=== PATIENT | male | born 1955 | race Caucasian/White ===

== ENCOUNTER → 2022-12-20 12:30 | Outpatient (CLI) | payer MEDICARE, OTHER, SELFPAY ==
--- NOTE | ~2022-12-20 | XR_ITS ---
Clinical Indication: Dyspnea PA and lateral views of the chest: Comparison: 05/30/2016 Findings: There is minimal patchy hazy airspace disease. No pleural effusion or pneumothorax. Linear bilateral scarring noted.. Cardiomediastinal silhouette is within normal limits. Bones and soft tiss ues are unremarkable. Impression: Minimal patchy bilateral haziness. Consider mild pulmonary edema or atypical infection. Areas of linear scarring at the midlung zones bilaterally. Reviewed, dictated and finalized at [facility]. Impression: Minimal patchy bilateral haziness. Consider mild pulmonary edema or atypical in fection. Areas of linear scarring at the midlung zones bilaterally.
== END ==
PROVIDERS: PCP Family Medicine; Visit Provider Family Medicine
DX: I51.7 Cardiomegaly (principal); I10 Essential (primary) hypertension; R01.1 Cardiac murmur, unspecified; R06.09 Other forms of dyspnea
CPT/HCPCS: 71046

== ENCOUNTER 2022-12-21 09:59 | Inpatient (IN) | payer MEDICARE, OTHER, SELFPAY ==
[2022-12-21] VITALS (33 sets, daily range): BP systolic 124–154; BP diastolic 69–97; PULSE 60–79; RESP 7–18; TEMP 36.2–36.9; O2SAT 92–100; BMI 25.9
--- NOTE | ~2022-12-21 | XR_ITS ---
XR chest 2V 12/21/2022 11:28 Indication: Shortness of breath and feet swelling Procedure: AP and lateral views of the chest Comparison: 12/20/2022 and 05/30/2016 Findings: Cardiomegaly. Mild interstitial edema. Linear infiltrates of the mid lungs bilaterally, mos t likely atelectasis/scarring. No significant effusion. No pneumothorax. No acute osseous abnormality . There is a hiatal hernia. Impression: 1: Cardiomegaly with mild interstitial edema. Reviewed, dictated and finalized at location [] Impression: 1: Cardiomegaly with mild interstitial edema.
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
[2022-12-21 10:25] LABS: Basophils Percent Auto 0.6 % (0.2-1.2); Eosinophils Absolute Auto 0.3 K/mm3 (0-0.3); Hematocrit 22.5 % (42.0-52.0); Immature Granulocyte Absolute 0.03 K/mm3 (0.00-0.031); Immature Granulocyte Percent A 0.5 % (0-0.5); Immature Platelet Fraction Pct 4.2 % (0.9-11.2); Immature Reticulocyte Fraction 14.9 % (3.0-15.9); Lymphocytes Absolute Auto 1.57 K/mm3 (0.9-3.2); Lymphocytes Percent Auto 25.3 % (18.3-44.2); Mean Corpuscular HGB Conc 26.2 g/dl (32-36); Mean Corpuscular Hemoglobin 19.6 pg (26-34); Mean Corpuscular Volume 74.8 fl (80-100); Mean Platelet Volume 10.9 fl (7.4-10.4); Monocytes Absolute Auto 0.6 K/mm3 (0.1-0.6); Monocytes Percent Auto 9.3 % (2.6-8.5); Neutrophils Absolute Auto 3.7 K/mm3 (1.3-6.7); Neutrophils Percent Auto 59.3 % (45.5-73.1); Platelet Count Result 190 k/mm3 (150-375); Red Blood Count 3.01 M/mm3 (4.6-6.20); Red Cell Distribution Width 17.3 % (11.5-14.5); Reticulocyte Hemoglobin Conten 16.5 pg (28.2-35.7); Reticulocyte Percent 1.57 % (0.7-4.3); Reticulocytes Absolute 0.05 M/mm3 (0.02-0.1); White Blood Count 6.2 K/mm3 (4.5-10.0)
[2022-12-21 10:28] LABS: Hemoglobin 5.9 g/dL (14.0-18.0)
[2022-12-21 10:33] LABS: Alanine Aminotransferase 14 U/L (6-50); Albumin Level 4.4 g/dL (3.5-5.1); Alkaline Phosphatase 97 U/L (38-126); Anion Gap 9 mmol/L (8-16); Aspartate Amino Transferase 19 U/L (17-59); Bilirubin,Total 0.5 mg/dL (0.2-1.3); Blood Urea Nitrogen 18 mg/dL (9-20); Calcium 8.7 mg/dL (8.4-10.2); Carbon Dioxide 27 mmol/L (22-30); Chloride 103 mmol/L (98-107); Estimated CRCL calculation 68 ml/min; Estimated Glomerular Filt Rate > 60; Glucose 100 mg/dL (65-110); Lactate Dehydrogenase 160 U/L (120-246); Potassium 4.1 mmol/L (3.4-5.0); Sodium 139 mmol/L (137-145)
[2022-12-21 10:34] LABS: Iron 22 ug/dL (49-181)
[2022-12-21 10:45] LABS: Percent Iron Saturation 4 % (20-50)
[2022-12-21 10:50] LABS: Platelet Estimate Adequate (Adequate)
[2022-12-21 10:51] LABS: Anisocytosis 1+ (NORMAL); Hypochromasia 1+ (NORMAL); Microcytosis 1+ (NORMAL); Ovalocytes 2+ (NORMAL); Poikilocytosis 1+ (NORMAL); Schistocytes None Seen (NORMAL)
--- NOTE | 2022-12-21 10:58 | ECG_ITS ---
Measurements Intervals [place] Rate: 62 P: 3 [place]: 164 QRS: 26 QRSD: 90 T: 31 QT: 435 QTc: 442 Interpretive Statements SINUS RHYTHM NO PREVIOUS ECG AVAILABLE FOR COMPARISON Electronically Signed On 12-21-2022 19:54:36 CDT by Karie Aquino M.D.
[2022-12-21 12:02] LABS: Folic Acid 9.6 ng/mL (2.76->20)
[2022-12-21] MEDS: TUBING, BLOOD PLUM PUMP TUBING 1 EACH XX (13:02)
[2022-12-21] MEDS: SODIUM CHLORIDE 0.9% IV 250 ML 30 ML IV CONT (13:02)
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
--- NOTE | 2022-12-21 14:41 | ECHO_ITS ---
Patient Info Name: Bob Ramos Age: 67 years : 1955 Gender: Male Ht: 69 in Wt: 173 lbs BSA: 1.96 m2 HR: 69 bpm Heart Rhythm: Sinus Rhythm Technical Quality: Good Exam Date: 12/21/2022 4:05 PM Exam Location: [facility] Patient Status: Outpatient Admit Date: 12/21/2022 Staff Ordering Physician: Natividad Guevara PA-C Bus Operator: Ade Parks RDCS Attending Provider: Bong Garcia MD Referring Physician: Paola TORRES; Exam Type: CA echo doppler color flow Study Info Indications - murmur/edema Complete two-dimensional, color flow and Doppler transthoracic echocardiogram is performed. Summary 1. Complete two-dimensional, color flow and Doppler transthoracic echocardiogram is performed. 2. Moderate left ventricular enlargement with mild concentric hypertrophy. Left ventricular function of the lower limit of normal, EF 50-55%, with mild hypokinesis of the basal inferior septal segment. Diastolic dysfunction is present. 3. Left atrial chamber dimension is moderately enlarged. 4. Mildly calcified aortic valve. There is mild to moderate aortic valve stenosis with a peak velocity of 254 cm/s, mean gradient of 14 mmHg, and aortic valve area of 1.2 cm2. 5. There is mild aortic valve regurgitation. 6. There is mild mitral valve regurgitation. 7. There is mild tricuspid valve regurgitation. 8. Mild pulmonary hypertension, estimated pulmonary arterial systolic pressure is 39 mmHg. 9. Normal sinus rhythm. Left Ventricle Left ventricular chamber dimension is moderately enlarged. Left ventricular systolic function is normal, estimated at 50-55%. There is mildly increased left ventricular wall thickness. Left ventricular septal wall motion is normal. The left ventricular diastolic function is abnormal. Right Ventricle Right ventricular chamber dimension is normal. Right ventricular systolic function is normal. Left Atria Left atrial chamber dimension is moderately enlarged. Right Atria Right atrial chamber dimension is normal. Aortic Valve The aortic valve is trileaflet. There is no aortic valve sclerosis. Mildly calcified aortic valve. There is mild to moderate aortic valve stenosis with a peak velocity of 254 cm/s, mean gradient of 14 mmHg, and aortic valve area of 1.2 cm2. There is mild aortic valve regurgitation. There is mild aortic valve calcification. Pulmonic Valve The pulmonic valve is normal. There is no pulmonic valve stenosis. There is no pulmonic regurgitation. Mitral Valve The mitral valve has normal leaflets. There is no mitral valve stenosis. There is mild mitral valve regurgitation. Tricuspid Valve The tricuspid valve leaflets are normal. There is no significant tricuspid valve stenosis. There is mild tricuspid valve regurgitation. Mild pulmonary hypertension, estimated pulmonary arterial systolic pressure is 39 mmHg. Pericardium/Pleural The pericardium appears normal. There is no pericardial effusion. Inferior Vena Cava Normal inferior vena cava with >50% collapse upon inspiration consistent with Empty right atrial pressure, 10 mmHg. Aorta The aortic root size at the sinus of Valsalva is normal. The prox ascending aorta size is normal. Left Ventricular Outflow Tract Name Value Normal LVOT 2D LVOT Diameter 2.1 cm LVO
[2022-12-21] MEDS: FUROSEMIDE INJ 40 MG/4 ML VIAL 20 MG IV PUSH (15:00)
--- NOTE | 2022-12-21 15:44 | ADMGEN ---
This patient, Bob Ramos, was admitted to Medical Room 261-01. Patient/family oriented to hospital policies and general routines including ID bracelet, bed and alarms, visiting hours, pain management, procedures, bathroom and other care routines, personal items, smoking policy, room service/diet, and visiting hours. Information on how to activate the Rapid Response Team has been discussed. Patient/Family are encouraged to report perceived risks to care and to ask questions if they do not understand what they are told or what they should do.
[2022-12-21 17:20] LABS: IFOB Positive Control Positive; Immunochemical Fecal Occult Bl Negative (N)
[2022-12-21 17:28] LABS: Hematocrit 27.1 % (42.0-52.0); Hemoglobin 7.7 g/dL (14.0-18.0)
[2022-12-21] MEDS: TIZANIDINE HCL 4 MG TABLET BY MOUTH (22:22)
[2022-12-21] MEDS: traZODone HCL 25 MG TABLET PO (22:22)
[2022-12-21] MEDS: GABAPENTIN 300 MG CAPSULE 600 MG PO (22:23)
[2022-12-22 05:19] LABS: Hematocrit 26.6 % (42.0-52.0); Hemoglobin 7.6 g/dL (14.0-18.0); Mean Corpuscular HGB Conc 28.6 g/dl (32-36); Mean Corpuscular Hemoglobin 21.4 pg (26-34); Mean Corpuscular Volume 74.9 fl (80-100); Mean Platelet Volume 10.4 fl (7.4-10.4); Platelet Count Result 160 k/mm3 (150-375); Red Blood Count 3.55 M/mm3 (4.6-6.20); Red Cell Distribution Width 17.5 % (11.5-14.5); White Blood Count 5.1 K/mm3 (4.5-10.0)
[2022-12-22 05:34] LABS: Anion Gap 5 mmol/L (8-16); Blood Urea Nitrogen 13 mg/dL (9-20); Calcium 8.7 mg/dL (8.4-10.2); Carbon Dioxide 31 mmol/L (22-30); Chloride 104 mmol/L (98-107); Estimated CRCL calculation 76 ml/min; Estimated Glomerular Filt Rate > 60; Glucose 84 mg/dL (65-110); Magnesium 2.3 mg/dL (1.6-2.3); Potassium 3.9 mmol/L (3.4-5.0); Sodium 140 mmol/L (137-145)
[2022-12-22 06:00] VITALS: BP 147/74; PULSE 66; RESP 14; TEMP 36.8; O2SAT 94
[2022-12-22 06:34] LABS: Thyroid Stimulating Hormone Reflex 0.662 uIU/mL (0.465-4.68)
[2022-12-22] MEDS: IRON SUCROSE COMPLEX 100 MG in SODIUM CHLORIDE 0.9% IV 50 ML 220 MG IVPB (08:37)
[2022-12-22] MEDS: GABAPENTIN 300 MG CAPSULE 600 MG PO ×3 (08:37→17:59)
[2022-12-22] MEDS: FLUTICASONE PROPIONATE 0.05% NA SPR 16 GM BTL (*BKC) 1 SPRAY NASAL (08:37)
[2022-12-22 08:38] VITALS: PULSE 68
[2022-12-22] MEDS: METOPROLOL TARTRATE 25 MG TABLET PO (08:38)
[2022-12-22] MEDS: SERTRALINE HCL 50 MG TABLET 200 MG PO (08:38)
[2022-12-22] MEDS: amLODIPine BESYLATE 2.5 MG TABLET PO (08:38)
[2022-12-22] MEDS: FUROSEMIDE INJ 40 MG/4 ML VIAL IV PUSH (08:38)
[2022-12-22] MEDS: ATORVASTATIN 40 MG TABLET PO (08:38)
[2022-12-22] MEDS: TIZANIDINE HCL 2 MG TABLET BY MOUTH ×4 (08:38→21:12)
[2022-12-22] MEDS: oxyCODONE/ACETAMINOPHEN (*CRX) 5-325 MG TABLET 1 TABLET PO ×2 (08:46→15:33)
[2022-12-22] MEDS: oxyCODONE HCL (*CRX) 2.5 MG TAB IR PO ×2 (08:46→15:34)
[2022-12-22 10:43] LABS: Hematocrit 28.3 % (42.0-52.0)
[2022-12-22 14:00] VITALS: BP 108/60; PULSE 66; RESP 16; TEMP 37; O2SAT 94
--- NOTE | 2022-12-22 15:33 | PM.IMPN ---
Progress Note: A&P Assessment and Plan (1) Symptomatic anemia: Code(s): D64.9 - Anemia, unspecified Status: Acute Assessment and Plan: Hemoglobin 5.7 on presentation, transfused 2 units packed RBCs. No obvious etiology for bleeding. Hemoccult negative. Suspect intermittent occult blood loss. Patient noted to be iron deficient (iron 22, TIBC 556, % saturation 4%, ferritin 18.60). MCV low. Received IV iron infusion. Will begin Protonix and proceed with GI consultation for further evaluation of profound anemia. (2) Congestive heart failure: Code(s): I50.9 - Heart failure, unspecified Status: Acute Assessment and Plan: Possibly mild acute exacerbation. Outpatient BNP was 300. Echo completed with EF 50-55%, diastolic dysfunction present, mild hypokinesis of basal inferior septal segment (appears patient has history of CAD). Patient has been diuresed with IV Lasix and appears euvolemic on exam. Will transition back to oral Lasix. Monitor intake and output and daily weights. Recommend outpatient Cardiology follow-up for abnormalities noted on echocardiogram. (3) Cardiac murmur: Code(s): R01.1 - Cardiac murmur, unspecified Status: Acute Assessment and Plan: Murmur noted on exam. Echo completed with only mild valvular disease. Recommend outpatient cardiac follow-up (4) Essential (primary) hypertension: Code(s): I10 - Essential (primary) hypertension Status: Acute Assessment and Plan: Blood pressure is remaining stable. Subjective Date/time seen: 12/22/22 15:33 Interval history: Date of service: 12/22/2022 Bob Ramos is a 67-year-old male with a history of hypertension, ERIN, TBI with subsequent ataxia who is seen in follow-up for anemia. Patient reports he is feeling improved today. His main concern was swelling in his bilateral feet which he states has nearly resolved. He does endorse weakness. Complains of mild shortness of breath as well as dyspnea on exertion, however states that this seems to be improving as well. He denies chest pain. No abdominal pain. No episodes of bleeding including melena, hematochezia, hematemesis, hematuria, epistaxis. Review of Systems Review of Systems: Twelve systems were reviewed and are negative except for as per HPI. All systems reviewed & are unremarkable except as noted in HPI and below Exam Narrative: General: well-nourished, well-appearing 67-year-old male, sitting up in bed, comfortable, NARD Neuro: awake, alert and oriented x4, no focal neuro deficits noted HEENMT: normocephalic, atraumatic, EOMI, sclerae anicteric Respiratory: clear to auscultation bilaterally, nonlabored breathing Cardio: regular rate, regular rhythm, murmur heard best at left sternal border Abdomen: nondistended, normoactive bowel sounds, soft, nontender to palpation Extremities: Trace edema, no erythema, or tenderness to palpation, DP pulses 2+ bilaterally Skin: no rashes or lesions, warm and dry Psych: appropriate mood and affect, judgment and insight intact Objective Data Vital Signs Vital Signs: Vital Signs - 24 hr 12/21/22 18:56 12/21/22 16:05 12/21/22 21:13 Temperature 98.2 F 97.8 F Pulse Rate 62 71 Respiratory Rate 18 16 Blood Pressure 150/77 H 154/82 H Pulse Oximetry 99 94 Oxygen Delivery Room Air 12/21/22 20:00 12/22/22 06:00 12/22/22 08:38 Temperature 98.2 F Pulse Rate 66 68 Respiratory Rate 14 Blood Pressure 147/74 H Pulse Oximetry 94 Oxygen Delivery Room Air 12/22/22 14:00 Temperature 98.6 F Pulse Rate 66 Respiratory Rate 16 Blood Pressure 108/60 Pulse Oximetry 94 Oxygen Delivery Intake/Output Intake/Output: Intake & Output 12/19/22 12/20/22 12/21/22 12/22/22 23:59 23:59 23:59 23:59 Intake Total 893 720 Output Total 1300 650 Balance -407 70 Meds/Results Medications: Active Medications Generic Name Dose Route Start La
[2022-12-22] MEDS: PANTOPRAZOLE 40 MG TABLET PO (17:59)
[2022-12-22 19:46] VITALS: BP 103/59; PULSE 70; RESP 18; TEMP 36.8; O2SAT 91
[2022-12-22] MEDS: traZODone HCL 25 MG TABLET PO (21:12)
[2022-12-22] MEDS: TIZANIDINE HCL 4 MG TABLET BY MOUTH (21:13)
[2022-12-23 06:00] VITALS: BP 132/64; PULSE 70; RESP 70; TEMP 37.3; O2SAT 91
[2022-12-23 08:03] VITALS: BP 130/73; PULSE 68; RESP 18; O2SAT 93
[2022-12-23 08:10] VITALS: PULSE 70
[2022-12-23] MEDS: ATORVASTATIN 40 MG TABLET PO (08:10)
[2022-12-23] MEDS: FUROSEMIDE 40 MG TABLET PO (08:10)
[2022-12-23] MEDS: SERTRALINE HCL 50 MG TABLET 200 MG PO (08:10)
[2022-12-23] MEDS: GABAPENTIN 300 MG CAPSULE 600 MG PO ×2 (08:10→12:26)
[2022-12-23] MEDS: PANTOPRAZOLE 40 MG TABLET PO (08:10)
[2022-12-23] MEDS: METOPROLOL TARTRATE 25 MG TABLET PO (08:10)
[2022-12-23] MEDS: FLUTICASONE PROPIONATE 0.05% NA SPR 16 GM BTL (*BKC) 1 SPRAY NASAL (08:10)
[2022-12-23] MEDS: amLODIPine BESYLATE 2.5 MG TABLET PO (08:10)
[2022-12-23] MEDS: oxyCODONE HCL (*CRX) 2.5 MG TAB IR PO (08:11)
[2022-12-23] MEDS: oxyCODONE/ACETAMINOPHEN (*CRX) 5-325 MG TABLET 1 TABLET PO (08:12)
[2022-12-23 08:15] VITALS: O2SAT 93
--- NOTE | 2022-12-23 08:46 | P.CDI_ITS ---
Acute diastolic CHF CDI Query Clarification Request CHF noted on the assessment and plan. Elevated BNP documented from outpatient lab work. Patient receiving Lasix. Pulmonary edema noted on 12/20 chest xray. Edema noted in the documentation. Patient with complaints of dyspnea on exertion. Please specify type and acuity of heart failure if known. * Acute * Chronic * Acute on Chronic * Unknown * Systolic * Diastolic * Combined Systolic and Diastolic * Unknown
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
[2022-12-23] MEDS: ALBUTEROL SULFATE (*SP) AEROSOL 1 PUFF INHALATION (09:51)
[2022-12-23 09:58] VITALS: O2SAT 93
[2022-12-23 11:20] LABS: Hematocrit 31.8 % (42.0-52.0); Hemoglobin 8.8 g/dL (14.0-18.0)
[2022-12-23 11:25] LABS: Potassium 3.7 mmol/L (3.4-5.0)
[2022-12-23] MEDS: TIZANIDINE HCL 2 MG TABLET BY MOUTH (12:26)
--- NOTE | 2022-12-23 13:25 | PM.DS ---
DS: Admitting Diagnosis Discharge Date 12/23/2022 Admitting Diagnosis Anemia DS: Discharge Diagnosis Discharge Diagnosis (1) Symptomatic anemia: Code(s): D64.9 - Anemia, unspecified Status: Acute Assessment and Plan: Hemoglobin 5.7 on presentation, transfused 2 units packed RBCs. H&H remained stable following transfusion. No obvious etiology for anemia. Hemoccult negative. Suspect intermittent occult blood loss. Patient noted to be iron deficient (iron 22, TIBC 556, % saturation 4%, ferritin 18.60). MCV low. Received IV iron infusion. Seen in consultation by GI, recommended outpatient EGD and colonoscopy. Patient will continue with oral iron supplementation. Started on Protonix while awaiting GI workup. Consider outpatient hematology evaluation if GI workup unrevealing. (2) Congestive heart failure: Qualifiers: Heart failure type: diastolic Heart failure chronicity: acute Qualified Code(s): I50.31 - Acute diastolic (congestive) heart failure Code(s): I50.9 - Heart failure, unspecified Status: Acute Assessment and Plan: New diagnosis. Patient reports he has not been informed of CHF diagnosis in the past but was recently started on Lasix due to complaints of lower extremity edema. CXR showed cardiomegaly with mild interstitial edema. Echocardiogram completed during admission which revealed EF 50-55%, diastolic dysfunction present, mild hypokinesis of basal inferior septal segment. Outpatient BNP 300. Diuresed with IV Lasix and became euvolemic. Will continue oral Lasix 40 mg daily. Outpatient referral to Cardiology provided. (3) Cardiac murmur: Code(s): R01.1 - Cardiac murmur, unspecified Status: Acute Assessment and Plan: Murmur noted on exam. Echo completed with mild to moderate aortic stenosis, aortic valve area 1.2 cm2 and mild aortic, mitral, tricuspid regurgitation. Outpatient Cardiology refer only mild valvular disease. Recommend outpatient cardiac follow-up (4) Essential (primary) hypertension: Code(s): I10 - Essential (primary) hypertension Status: Acute Assessment and Plan: Blood pressure stable during admission. Continue home antihypertensives DS: Summary Hospital Course Hospital Course: Bob Ramos is a 67-year-old male with a history of hypertension, ERIN, TBI with subsequent ataxia?who presented to the emergency department on 12/21/22 under the direction of his primary care provider as he was found to have anemia on outpatient labs. On presentation to the ED, his vital signs are stable, he was afebrile, hemoglobin was 5.9, hematocrit 22.5, Hemoccult negative, CXR with cardiomegaly and mild interstitial edema. He was admitted to the hospitalist service for further evaluation and management was seen in consultation by Gastroenterology. Please see above for further details. Patient will follow-up with GI for EGD and colonoscopy for evaluation of anemia. H&H remained stable following transfusion. He was diuresed and was euvolemic at time of discharge. Will follow up with Cardiology as an outpatient. Discussed findings and plan of care at length with patient and his . Both in agreement with plans for discharge and aware of need for outpatient follow-up. Discussed worrisome signs and symptoms for which to return and patient was educated on his medications. Discharged in hemodynamically stable condition on 12/23/2022. Time Spent with Patient Time attestation: Total time spent providing and/or coordinating discharge services: 45 minutes Time spent: Greater than 30 minutes Exam Narrative: General: well-nourished, well-appearing 67-year-old male, sitting up in bed, comfortable, NARD Neuro: awake, alert and oriented x4, no focal neuro deficits noted HEENMT: normocephalic, atraumatic, EOMI, sclerae anicteric Respiratory: clear to auscultation bilaterally, nonlabored breathing Cardio: regular rate, re
[2022-12-23 14:00] VITALS: BP 129/69; PULSE 73; RESP 17; TEMP 36.8; O2SAT 96
== END 2022-12-23 15:50 | disposition home or self-care (01) | DRG 391 ==
LOC: ANHED 12:37 → ANH3MEDSUR 13:46 → ANH2MED 14:57
PROVIDERS: Physician Assistant; Admitting Provider Hospitalist; Emergency Provider Physician Assistant; PCP Family Medicine; Visit Provider Physician Assistant
DX: R19.5 Other fecal abnormalities (principal); I50.31 Acute diastolic (congestive) heart failure; D50.0 Iron deficiency anemia secondary to blood loss (chronic); I11.0 Hypertensive heart disease with heart failure; E78.5 Hyperlipidemia, unspecified; G47.33 Obstructive sleep apnea (adult) (pediatric); R01.1 Cardiac murmur, unspecified; I35.0 Nonrheumatic aortic (valve) stenosis; R27.0 Ataxia, unspecified; Z87.820 Personal history of traumatic brain injury
CPT/HCPCS: 36415; 36430; 71046; 80048; 80053; 82274; 82607; 82728; 82746; 83540; 83550; 83615; 83735; 84132; 84443; 85014; 85018; 85025; 85027; 85046; 85055; 86850; 86900; 86901; 86923; 93005; 93306; 94640; 96374; 96375; 96376; 99285; A9270; G0378; J1756; J1940; J7050; P9016

== ENCOUNTER 2023-01-25 10:24 | Outpatient (CLI) | payer MEDICARE, OTHER, SELFPAY ==
--- NOTE | 2023-01-25 10:55 | ECHO_ITS ---
Patient Info Name: Bob Ramos Age: 67 years : 1955 Gender: Male Ht: 67 in Wt: 173 lbs BSA: 1.94 m2 HR: 52 bpm BP: 155 / 97 mmHg Heart Rhythm: Sinus Rhythm Technical Quality: Good Exam Date: 01/25/2023 11:04 AM Exam Location: [facility] Patient Status: Outpatient Admit Date: 01/25/2023 Staff Ordering Physician: Bertrand Rodgers MD Outer Diameter Technician: Shayy Arias RDCS Attending Provider: Bertrand Rodgers MD Referring Physician: Vishal BURRELL; Exam Type: CA echo doppler color flow Study Info Indications R01.1 - Cardiac murmur, unspecified Complete two-dimensional, color flow and Doppler transthoracic echocardiogram is performed. Summary 1. Complete two-dimensional, color flow and Doppler transthoracic echocardiogram is performed. 2. Left ventricular chamber dimension is normal. 3. Ventricular septum is sigmoid shaped. No LVOT obstruction. 4. Left ventricular systolic function is normal, estimated at 60-65%. 5. There is mild concentric increased left ventricular wall thickness. 6. The left ventricular diastolic function is grade II diastolic dysfunction. 7. E/e' 17 is elevated. 8. Left atrial chamber dimension is mildly enlarged. 9. There is moderate aortic valve sclerosis. 10. There is moderate aortic valve stenosis with a peak velocity of 278 cm/s, mean gradient of 15 mmHg, and aortic valve area of 1.2 cm2. 11. There is mild aortic valve regurgitation. 12. There is mild tricuspid valve regurgitation. 13. No pulmonary hypertension, estimated pulmonary arterial systolic pressure is 33 mmHg. 14. There is trace pulmonic regurgitation. Left Ventricle E/e' 17 is elevated. Ventricular septum is sigmoid shaped. No LVOT obstruction. Left ventricular chamber dimension is normal. Left ventricular systolic function is normal, estimated at 60-65%. There is mild concentric increased left ventricular wall thickness. The left ventricular diastolic function is grade II diastolic dysfunction. Right Ventricle Right ventricular systolic function is normal and with normal TAPSE 2.1 cm. Right ventricular chamber dimension is normal. Left Atria Left atrial chamber dimension is mildly enlarged. Right Atria Right atrial chamber dimension is normal. Aortic Valve The aortic valve is trileaflet. There is moderate aortic valve sclerosis. There is moderate aortic valve stenosis with a peak velocity of 278 cm/s, mean gradient of 15 mmHg, and aortic valve area of 1.2 cm2. There is mild aortic valve regurgitation. Pulmonic Valve There is trace pulmonic regurgitation. Mitral Valve There is no mitral valve stenosis. There is no mitral valve regurgitation. Tricuspid Valve There is mild tricuspid valve regurgitation. No pulmonary hypertension, estimated pulmonary arterial systolic pressure is 33 mmHg. Pericardium/Pleural There is no pericardial effusion. Inferior Vena Cava Normal inferior vena cava with >50% collapse upon inspiration consistent with normal right atrial pressure, 5 mmHg. Aorta The aortic root size at the sinus of Valsalva is normal. Left Ventricular Outflow Tract Name Value Normal LVOT 2D LVOT Diameter 2.0 cm LVOT Doppler LVOT Peak Gradient 4 mmHg
== END 2023-01-25 10:25 | disposition home or self-care (01) ==
PROVIDERS: PCP Family Medicine; Visit Provider Family Medicine
DX: R01.1 Cardiac murmur, unspecified (principal); R06.00 Dyspnea, unspecified; I35.1 Nonrheumatic aortic (valve) insufficiency; I34.0 Nonrheumatic mitral (valve) insufficiency; I36.1 Nonrheumatic tricuspid (valve) insufficiency
CPT/HCPCS: 93306

== ENCOUNTER 2023-08-23 16:14 | Outpatient (CLI) | payer MEDICARE, OTHER, SELFPAY ==
--- NOTE | ~2023-08-23 | MR_ITS ---
EXAMINATION: MR lumbar spine wo con DATE: 08/23/2023 17:16 INDICATION: Lumbago. TECHNIQUE: Magnetic resonance imaging (MRI) of the lumbar spine was performed without intravenous con trast. COMPARISON: Lumbar spine radiographs 03/11/2019 FINDINGS: There is 12 degrees levoscoliosis of thoracolumbar spine. There is 3 mm anterolisthesis of L4 on L5. There is mild chronic height loss of T11 and T12 vertebral bodies. There is severely decrea sed disc height from T12-L1 through L2-L3, mildly decreased disc height at L3-L4, and severely decrea sed disc height at L4-L5 and L5-S1. The distal spinal cord signal intensity is normal. The conus medu llaris is at L1. There is peripheral displacement of the cauda equina at L5 and S1, consistent with a rachnoiditis. There are cysts in the kidneys measuring up to 4.8 cm on the right. The following disc levels are specifically discussed: T12-L1: The disc is bulging. There is mild bilateral facet joint osteoarthritis. There is mild bilate ral neural foraminal stenosis. There is mild central canal stenosis. L1-L2: The disc is bulging and has an annular fissure. There is mild bilateral facet joint osteoarthr itis. There is moderate right and mild left neural foraminal stenosis. There is mild central canal st enosis. L2-L3: The disc is bulging and has an annular fissure. There is mild bilateral facet joint osteoarthr itis. There is mild bilateral neural foraminal stenosis. There is mild central canal stenosis. L3-L4: The disc is bulging. There is moderate bilateral facet joint osteoarthritis. There is mild elkin ateral neural foraminal stenosis. There is mild central canal stenosis. L4-L5: The disc is bulging and has an annular fissure. There is severe bilateral facet joint osteoart hritis. There is mild bilateral neural foraminal stenosis. There is mild central canal stenosis. L5-S1: The disc is bulging and has an annular fissure. There is severe bilateral facet joint osteoart hritis. There is moderate right and mild left neural foraminal stenosis. There is no central canal st enosis. IMPRESSION: 1. Severe lumbar spondylosis. 2. Thoracolumbar levoscoliosis. 3. Arachnoiditis. Reviewed, dictated and finalized at location E. [employer]
== END 2023-08-23 16:15 | disposition home or self-care (01) ==
LOC: ANHIMG 16:15
PROVIDERS: PCP Family Medicine; Visit Provider Nurse Practitioner Family
DX: M47.896 Other spondylosis, lumbar region (principal)
CPT/HCPCS: 72148

== ENCOUNTER 2025-04-10 01:36 | Day surgery (SDC) | payer MEDICARE, OTHER, SELFPAY ==
[2025-04-07 11:45] VITALS: BMI 25.1
[2025-04-10 08:39] VITALS: BP 133/76; PULSE 59; RESP 18; TEMP 36.5; O2SAT 99
[2025-04-10] MEDS: LACTATED RINGERS 1,000 ML 150 ML IV CONT (08:49)
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
[2025-04-10 09:58] VITALS: BP 116/72; PULSE 57; RESP 20; O2SAT 99
[2025-04-10 10:08] VITALS: BP 125/74; PULSE 53; RESP 17; O2SAT 99
[2025-04-10 10:18] VITALS: BP 133/76; PULSE 58; RESP 17; O2SAT 99
== END 2025-04-10 10:37 | disposition home or self-care (01) ==
PROVIDERS: PCP Family Medicine; Referring Provider Family Medicine; Visit Provider Internal Medicine Gastroenterology
PROC: 0DJD8ZZ Inspection of Lower Intestinal Tract, Via Natural or Artificial Opening Endoscopic (ICD-10-PCS; CPT 45378; principal; 2025-04-10 10:00)
DX: Z12.11 Encounter for screening for malignant neoplasm of colon (principal); E78.5 Hyperlipidemia, unspecified; I10 Essential (primary) hypertension; D64.9 Anemia, unspecified; F32.A Depression, unspecified; N40.0 Benign prostatic hyperplasia without lower urinary tract symptoms; G89.29 Other chronic pain; M54.41 Lumbago with sciatica, right side; F17.210 Nicotine dependence, cigarettes, uncomplicated; Z79.51 Long term (current) use of inhaled steroids; Z79.891 Long term (current) use of opiate analgesic; Z98.890 Other specified postprocedural states; Z86.0100 Personal history of colon polyps, unspecified; Z80.1 Family history of malignant neoplasm of trachea, bronchus and lung; Z82.49 Family history of ischemic heart disease and other diseases of the circulatory system
CPT/HCPCS: G0105; J2003; J2704; J7120